=== PATIENT | female | born 1940 | race Caucasian/White ===

== ENCOUNTER 2016-12-28 05:43 | Inpatient (IN) ==
[2016-12-28] MEDS ORDERED: VANCOMYCIN INJ 1,000 MG in SODIUM CHLORIDE 0.9% 250 ML IV ONE (06:00)
[2016-12-28] MEDS ORDERED: SODIUM CHLORIDE 0.9% 100 ML IV ONE (06:11)
[2016-12-28] MEDS ORDERED: ceFAZolin 1,000 MG VIAL ONE (06:11)
[2016-12-28] MEDS ORDERED: VANCOMYCIN 1,000 MG VIAL ONE (06:11)
[2016-12-28] MEDS ORDERED: SCOPOLAMINE 1.5 MG PATCH TRANSDERM ONE (06:43)
[2016-12-28] MEDS ORDERED: TRANEXAMIC ACID 1,000 MG/10 ML VIAL IV ONE (06:46)
[2016-12-28] MEDS ORDERED: SCOPOLAMINE 1.5 MG PATCH TRANSDERM STA (06:51)
--- NOTE | 2016-12-28 07:06 | History and Physical Update ---
History and Physical Update - History and Physical H&P was reviewed, the patient examined and there: are no changes in the patients condition since last H&P was completed.
[2016-12-28] MEDS ORDERED: ONDANSETRON 4 MG/2 ML VIAL ONE ×2 (07:15→09:39)
[2016-12-28] MEDS ORDERED: PROPOFOL 200 MG/20 ML VIAL IV ONE (07:15)
[2016-12-28] MEDS ORDERED: KETOROLAC 30 MG/1 ML VIAL ONE (07:15)
[2016-12-28] MEDS ORDERED: LIDOCAINE 2% 5 ML VIAL ONE (07:15)
[2016-12-28] MEDS ORDERED: GLYCOPYRROLATE 0.4 MG/2 ML VIAL ONE (07:15)
[2016-12-28] MEDS ORDERED: DEXAMETHASONE 10 MG/1 ML VIAL ONE (07:15)
[2016-12-28] MEDS: LACTATED RINGERS 1,000 ML IV SCH ×3 (07:15→14:40)
[2016-12-28] MEDS ORDERED: HYDROmorphone 2 MG/1 ML VIAL ONE (09:28)
[2016-12-28] MEDS ORDERED: SEVOFLURANE 1 UNIT/15 MINUTE INH ONE (09:28)
[2016-12-28] MEDS ORDERED: MIDAZOLAM 2 MG/2 ML VIAL ONE (09:29)
[2016-12-28] MEDS ORDERED: fentaNYL 100 MCG/2 ML VIAL ONE (09:29)
[2016-12-28] MEDS ORDERED: ACETAMINOPHEN 1,000 MG/100 ML VIAL IV ONE (09:29)
[2016-12-28] MEDS ORDERED: LACTATED RINGERS 1,000 ML IV ONE (09:29)
[2016-12-28] MEDS ORDERED: HYDROmorphone 2 MG/1 ML VIAL IV PRN ×2 (09:37→09:42)
[2016-12-28] MEDS ORDERED: ONDANSETRON 4 MG/2 ML VIAL IV PRN ×2 (09:37→09:42)
[2016-12-28] MEDS ORDERED: NALOXONE 0.4 MG/ML VIAL IV PRN (09:42)
[2016-12-28] MEDS ORDERED: BISACODYL 10 MG SUPP RECTAL PRN (09:42)
[2016-12-28] MEDS ORDERED: MAGNESIUM HYDROXIDE SUSP 30 ML UDCUP PO PRN (09:42)
[2016-12-28] MEDS ORDERED: PROMETHAZINE 25 MG/1 ML VIAL IM PRN (09:42)
[2016-12-28] MEDS ORDERED: TEMAZEPAM 7.5 MG CAPSULE PO PRN (09:42)
[2016-12-28] MEDS ORDERED: diphenhydrAMINE CAP 25 MG CAPSULE PO PRN (09:42)
[2016-12-28] MEDS ORDERED: LACTULOSE 20 GM/30 ML UDCUP PO PRN (09:42)
[2016-12-28] MEDS ORDERED: NITROGLYCERIN SL 0.4 MG TABLET SL PRN (09:45)
[2016-12-28] MEDS ORDERED: diphenhydrAMINE 50 MG/1 ML VIAL ONE (10:03)
[2016-12-28] MEDS: HYDROmorphone PCA 30 MG/30 ML SYRINGE IV SCH (10:05)
[2016-12-28] MEDS ORDERED: diphenhydrAMINE 50 MG/1 ML VIAL IV ONE (10:06)
[2016-12-28] MEDS ORDERED: HYDROmorphone PCA 30 MG/30 ML SYRINGE IV ONE (10:10)
--- NOTE | 2016-12-28 12:03 | Anesthesia Post-Op ---
Anesthesia Post OP - Post Ansesthetic Evaluation Patient seen in post op: Yes Resp: within normal limits CV: within normal limits Mental: within normal limits Temp: within normal limits [id number]: within normal limits Nausea and Vomiting: within normal limits Pain: within normal limits
--- NOTE | 2016-12-28 13:01 | Orthopedic Progress Note ---
Orthopedics - Subjective Interval history: Comfortable no nausea good pulse discussed up in a.m. Exam - Constitutional Vitals: Period Temp Pulse Resp BP Sys/Herrera Pulse Ox Last 24 Hr 97.2 F-98.4 F 63-76 16-18 137-167/55-67 95-100
--- NOTE | 2016-12-28 13:30 | XRay Report ---
XR knee 2V RT Indication: Arthroplasty Comparison: None available Findings: Right knee arthroplasty has been performed. Component positioning appears within normal limits. No periprosthetic fracture seen. Expected postsurgical changes are present in the overlying soft tissues. Impression: Knee arthroplasty as described above. PROCEDURE INTERPRETED AT [facility] DEPARTMENT OF RADIOLOGY Final Report Signed by: Dr. Ld Ba
--- NOTE | 2016-12-28 19:09 | Operative Note ---
DATE OF SURGERY: 12/28/2016 PREOPERATIVE DIAGNOSIS: FAILED UNICOMPARTMENTAL ARTHROPLASTY, RIGHT KNEE. POSTOPERATIVE DIAGNOSIS: SAME. OPERATIVE PROCEDURE: Revision, right total knee. SURGEON: Luis Holloway Jr., MD ANESTHESIA: General. INDICATIONS: A 76-year-old white female, approximately 14 years from unicompartmental arthroplasty t o her right knee. She has had increasing amount of pain, swelling and instability with gait in the [facility] knee over the past several years. She ultimately had her left unicompartmental knee revised with a total and she has done very well. She is here today for revision of the right knee. OPERATIVE PROCEDURE: The patient was taken to the operating room and under general anesthetic, place d in a supine position, the right leg was positioned, prepped and draped in usual sterile manner. Juan garay received vancomycin and Ancef preoperatively. The limb was elevated, exsanguinated, and the tourni quet inflated to 300 mmHg. A midline incision was made over the anterior aspect of the right knee. Sharp dissection was carried down through skin and subcutaneous tissue. A medium parapatellar arthro keyla performed, minimal effusion. No clinical evidence of infection. The femoral component and tibi al component were both removed using flexible osteotomes. The poly tibial component was essentially loose. Intramedullary alignment guides were then used to make the appropriate cuts about the distal femur and proximal tibia. The femur was sized to a 2.5 and prepared for posterior stabilized compone nt, which was similar to what she has on the contralateral knee. The tibia was also exposed and cut for a 5 mm medial augment. Ultimately, a 10 mm rotating platform posterior stabilized component was selected with a size 2 tibial stem and a 5 mm augment. Removal of the trial components was then perf ormed. The patella was to be resurfaced with a 32-button. Again, removal of the trial components an d after irrigation all three components cemented into place. The knee was then further irrigated and closed over two 1/8-inch Hemovac drains in a standard fashion using #1 Vicryl for the arthrotomy, 2- 0 Vicryl for the subcutaneous layer, and francesco for skin. Tourniquet was deflated during wound clos ure at 65 minutes. Transported to recovery room in stable condition.
[2016-12-28] MEDS: FONDAPARINUX 2.5 MG/0.5 ML SYRINGE SUBCUT SCH (20:47)
[2016-12-28] MEDS: DILTIAZEM CD 240 MG CAPSULE PO SCH (20:47)
[2016-12-28] MEDS: CARVEDILOL 12.5 MG TABLET PO SCH (20:48)
[2016-12-28] MEDS: DOCUSATE SODIUM 100 MG CAPSULE PO SCH ×2 (20:48→20:54)
[2016-12-28] MEDS: CHOLECALCIFEROL 1,000 UNIT TABLET PO SCH (20:48)
[2016-12-28] MEDS: ASCORBIC ACID 500 MG TABLET PO SCH (20:48)
[2016-12-28] MEDS: diphenhydrAMINE CAP 25 MG CAPSULE PO SCH (20:48)
[2016-12-28] MEDS: ATORVASTATIN 40 MG TABLET PO SCH (20:48)
[2016-12-28] MEDS: cycloSPORINE OPH EMUL 1 VIAL BOTH EYES SCH (20:50)
[2016-12-28] MEDS ORDERED: SLOW MAG 71.5 MG PO SCH (21:00)
[2016-12-28] MEDS ORDERED: ARMOUR THYROID PO SCH (21:00)
[2016-12-28] MEDS ORDERED: VIMOVO PO SCH (21:00)
[2016-12-29 06:50] LABS: Basophils % 0.1 % (0.0-0.8); Hematocrit 31.5 VOL% (35.7-47.0); Immature Granulocytes % 0.3 %; Immature Granulocytes Absolute 0.04 #; Lymphocytes # 1.1 10*3/uL (1.4-4.0); Lymphocytes % 8.5 % (21.3-54.2); Mean Corpuscular HGB Conc 31.7 GM/DL (32-36); Mean Corpuscular Hemoglobin 29 PG (27-34); Mean Corpuscular Volume 91.3 FL (87-102); Mean Platelet Volume 10.7 FL (9.6-12.0); Monocytes # 1.1 10*3/uL (0.11-0.8); Monocytes % 8.4 % (1.7-12.7); Neutrophils # 10.4 10*3/uL (1.4-7.4); Neutrophils % 82.7 % (38.7-73.9); Platelet Count 301 T/CUMM (130-400); Red Blood Count 3.45 MC/CUMM (3.8-5.5); Red Cell Distribution Width 14.4 % (9.3-17.3); White Blood Count 12.5 T/CUMM (4-12)
[2016-12-29 07:17] LABS: Hypochromasia 1+; Lymphocytes 6 % (20-55); Ovalocytes Slight; Platelet Estimate Adequate; Segmented Neutrophils 91 % (50-85); Total Cells Counted 100
[2016-12-29 07:19] LABS: Calcium 8.9 MG/DL (8.5-10.1); Osmolality,Calculated 279.4 MOS/KG (273-304)
[2016-12-29] MEDS: LACTATED RINGERS 1,000 ML IV SCH ×2 (07:25→23:58)
--- NOTE | 2016-12-29 07:51 | Orthopedic Progress Note ---
Orthopedics - Subjective Interval history: Hemoglobin 10 comfortable neurovascular intact drain removed ready for start PT planning home with home health Exam - Constitutional Vitals: Period Temp Pulse Resp BP Sys/Herrera Pulse Ox Last 24 Hr 97.2 F-98.5 F 59-86 16-18 121-162/53-97 90-100 Results - Labs CBC & BMP: 12/29/16 06:36 12/29/16 06:36
[2016-12-29] MEDS: CHOLECALCIFEROL 1,000 UNIT TABLET PO SCH ×2 (08:42→21:31)
[2016-12-29] MEDS: OLMESARTAN 20 MG TABLET PO SCH (08:42)
[2016-12-29] MEDS: MULTIVITAMIN (CENTRUM) TABLET PO SCH (08:42)
[2016-12-29] MEDS: CALCIUM (CARBONATE) 600 MG TABLET PO SCH (08:42)
[2016-12-29] MEDS: ASCORBIC ACID 500 MG TABLET PO SCH ×2 (08:42→21:30)
[2016-12-29] MEDS: CLOPIDOGREL 75 MG TABLET PO SCH (08:42)
[2016-12-29] MEDS: DOCUSATE SODIUM 100 MG CAPSULE PO SCH ×2 (08:42→21:31)
[2016-12-29] MEDS: COENZYME Q10 100 MG CAPSULE PO SCH (08:43)
[2016-12-29] MEDS: CARVEDILOL 25 MG TABLET PO SCH (08:45)
[2016-12-29] MEDS: cycloSPORINE OPH EMUL 1 VIAL BOTH EYES SCH ×2 (08:47→21:37)
[2016-12-29] MEDS: POLYETHYLENE GLYCOL POWDER 17 GM PACK PO SCH (08:47)
[2016-12-29] MEDS: HYDROmorphone PCA 30 MG/30 ML SYRINGE IV SCH (10:19)
--- NOTE | 2016-12-29 10:28 | Pulmonology Progress Note ---
Pulmonary - PN: Subj Interval history: This is a 76-year-old white female who is the of Dr. Joseph Collins. She is postop total knee replacement is doing very well. There are no new problems and there are no new requests. Past history includes high blood pressure, hyperlipidemia stent in the proximal LAD and a second stent distally placed 11/18/2011. Scoliosis. Spinal stenosis. Previous total left knee replacement 2000. Hysterectomy. Ankle repair in 1976 and in 2003. Past history of paroxysmal supraventricular tachycardia. Lab. H&H 10.0/31.5. Platelets are 301,000. White count is 12,500. Electrolytes are normal. Creatinine 0.60 with a BUN of 9. Physical exam. Vital signs. See below Psychiatric oriented 3 Neurologic. Cranial nerves are intact. Long track motor functions intact. Face. Symmetrical. No edema of the lips or tongue. Neck. Symmetrical. No mass. No meningismus. Chest. Clear Heart. No gallop Abdomen nondistended. Positive bowel sounds Extremities. Nothing to suggest deep venous thrombophlebitis. The remainder the exam is noncontributory Plan. 1. Continue present regimen. 2. Home medicines have been continued Exam (Progress Note) - Constitutional Vitals: Period Temp Pulse Resp BP Sys/Herrera Pulse Ox Last 24 Hr 97.3 F-98.5 F 59-86 16-18 121-153/53-97 90-98 Results - Labs CBC & BMP: 12/29/16 06:36 12/29/16 06:36
--- NOTE | 2016-12-29 11:21 | Pathology Report from [facility] ---
[facility] [place] ACCESSION # : [id number] PATIENT NAME : Fartun Collins ORDERING DR : DARREN LANDRY JR, MD CLINICAL HX: Unicompartment arthoplasties POST-OP DX: Same SPECIMEN INFO: Bone tissue RT knee & old implant GROSS DESCRIPTION: Received in formalin labeled FARTUN COLLINS are multiple fragments of bone, soft tissue and cartilage measuring 13.5 x 6.5 cm in aggregate. The articular surfaces are predominately smooth lowe with no subchondral eburnation seen. Also received in the specimen container is knee replacement hardware. General Teller tissue is submitted in one cassette. 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 COLLECTED DATE: 12/28/2016 [facility] [place] REPORT DATE: 12/29/2016 ELECTRONICALLY SIGNED BY: Erickson Prieto M.D. 12/29/2016 - 10:16:15 MTDCandice
[2016-12-29] MEDS: DILTIAZEM CD 240 MG CAPSULE PO SCH (21:30)
[2016-12-29] MEDS: ATORVASTATIN 40 MG TABLET PO SCH (21:30)
[2016-12-29] MEDS: CARVEDILOL 12.5 MG TABLET PO SCH (21:30)
[2016-12-29] MEDS: diphenhydrAMINE CAP 25 MG CAPSULE PO SCH (21:31)
[2016-12-29] MEDS: FONDAPARINUX 2.5 MG/0.5 ML SYRINGE SUBCUT SCH (21:31)
[2016-12-30 05:44] LABS: Basophils % 0.1 % (0.0-0.8); Eosinophils % 0.1 % (0.00-10.9); Hematocrit 27.1 VOL% (35.7-47.0); Hemoglobin 8.9 GM/DL (12.0-16.0); Immature Granulocytes % 0.3 %; Immature Granulocytes Absolute 0.04 #; Lymphocytes % 16.9 % (21.3-54.2); Mean Corpuscular HGB Conc 32.8 GM/DL (32-36); Mean Corpuscular Hemoglobin 30 PG (27-34); Mean Corpuscular Volume 91.6 FL (87-102); Mean Platelet Volume 11.3 FL (9.6-12.0); Monocytes # 1.4 10*3/uL (0.11-0.8); Neutrophils # 8.4 10*3/uL (1.4-7.4); Neutrophils % 70.6 % (38.7-73.9); Platelet Count 247 T/CUMM (130-400); Red Blood Count 2.96 MC/CUMM (3.8-5.5); Red Cell Distribution Width 14.6 % (9.3-17.3); White Blood Count 11.9 T/CUMM (4-12)
[2016-12-30] MEDS: ASCORBIC ACID 500 MG TABLET PO SCH (08:52)
[2016-12-30] MEDS: CALCIUM (CARBONATE) 600 MG TABLET PO SCH (08:52)
[2016-12-30] MEDS: COENZYME Q10 100 MG CAPSULE PO SCH (08:52)
[2016-12-30] MEDS: CLOPIDOGREL 75 MG TABLET PO SCH (08:52)
[2016-12-30] MEDS: cycloSPORINE OPH EMUL 1 VIAL BOTH EYES SCH (08:53)
[2016-12-30] MEDS: DOCUSATE SODIUM 100 MG CAPSULE PO SCH (08:53)
[2016-12-30] MEDS: MULTIVITAMIN (CENTRUM) TABLET PO SCH (08:53)
[2016-12-30] MEDS: CHOLECALCIFEROL 1,000 UNIT TABLET PO SCH (08:53)
[2016-12-30] MEDS: OLMESARTAN 20 MG TABLET PO SCH (08:53)
[2016-12-30] MEDS: CARVEDILOL 25 MG TABLET PO SCH (08:58)
[2016-12-30] MEDS: POLYETHYLENE GLYCOL POWDER 17 GM PACK PO SCH (08:58)
--- NOTE | 2016-12-30 09:35 | Pulmonology Progress Note ---
Pulmonary - PN: Subj Interval history: This is a 76-year-old white female who is the of Dr. Joseph Clolins. She is postop total knee replacement is doing very well. There are no new problems and there are no new requests. Past history includes high blood pressure, hyperlipidemia stent in the proximal LAD and a second stent distally placed 11/18/2011. Scoliosis. Spinal stenosis. Previous total left knee replacement 2000. Hysterectomy. Ankle repair in 1976 and in 2003. Past history of paroxysmal supraventricular tachycardia. Lab. H&H 10.0/31.5. Platelets are 301,000. White count is 12,500. Electrolytes are normal. Creatinine 0.60 with a BUN of 9. 12/30/2016. Patient is doing well today her daughter Ms. ramirez was present. Patient's had a recent GI infection which was treated with Cipro she now has excessive gas. I suggested she try Phazyme if her symptoms do not clear up in 2 -3 weeks we should investigate it. Physical exam. Vital signs. See below Psychiatric oriented 3 Neurologic. Cranial nerves are intact. Long track motor functions intact. Face. Symmetrical. No edema of the lips or tongue. Neck. Symmetrical. No mass. No meningismus. Chest. Clear Heart. No gallop Abdomen nondistended. Positive bowel sounds Extremities. Nothing to suggest deep venous thrombophlebitis. The remainder the exam is noncontributory Plan. 12/29/2016 1. Continue present regimen. 2. Home medicines have been continued 12/30/2016. 1. See today's note above. 2. Gaseous Exam (Progress Note) - Constitutional Vitals: Period Temp Pulse Resp BP Sys/Herrera Pulse Ox Last 24 Hr 97.2 F-98.7 F 63-113 16-18 124-174/54-64 93-96 Results - Labs CBC & BMP: 12/30/16 04:38 12/29/16 06:36
--- NOTE | 2016-12-30 10:19 | Orthopedic Progress Note ---
Orthopedics - Subjective Interval history: Comfortable H&H okay minimal drainage instructed will likely go home after PT today if continues to do well Exam - Constitutional Vitals: Period Temp Pulse Resp BP Sys/Herrera Pulse Ox Last 24 Hr 97.2 F-98.7 F 63-113 16-18 124-174/54-64 93-96 Results - Labs CBC & BMP: 12/30/16 04:38 12/29/16 06:36 Specialty Discharge - Follow Up or Referrals Follow up with: Luis Holloway Jr., MD [Physician] -
--- NOTE | 2016-12-30 10:22 | Discharge Summary ---
Hospital Course - Hospital Course Hospital Course: Admitted for revision right total knee progressing well home with home health and home PT Diagnosis - Discharge Diagnosis (1) Failed total knee, right Status: Acute (2) Failed total knee arthroplasty Status: Acute Specialty Discharge - Follow Up or Referrals Follow up with: Luis Holloway Jr., MD [Physician] - Discharge Plan - Discharge Data Disposition: Home Health Service Condition at Discharge: Stable Discharge Diet: advance to your usual diet Activity: ambulate only with your walker, as per physical therapy, increase activity as tolerated Hygiene: may shower, keep area(s) dry Weight Bearing at Discharge: weight bear as tolerated Driving: not until seen by doctor - Discharge Medications New HYDROcodone/ACETAMIN 7.5-325 [[place] 7.5-325] 1 tablet PO Q4H PRN #30 tablet PRN Reason: Pain Moderate (4-7) Continue Thyroid,Pork [[place] Thyroid] 45 mg PO BID Olmesartan Medoxomil [Benicar] 40 mg PO DAILY Diltiazem Cd Cap [Cardizem CD] 240 mg PO BEDTIME Carvedilol [Coreg] 25 mg PO QAM Atorvastatin [Lipitor] 40 mg PO BEDTIME Nitroglycerin Sl Tab [Nitrostat] 1 tablet SL Q5M PRN PRN Reason: CHEST PAIN cycloSPORINE OPH EMUL [Restasis] 1 drop BOTH EYES BID Naproxen/Esomeprazole Mag [Vimovo 500-20 mg] 1 tablet PO BID Ascorbic Acid [Vitamin C] 1,000 mg PO BID Magnesium Chloride [Slow-Mag] 71.5 mg PO BID Cholecalciferol [Vitamin D3] 1,000 unit PO BID Esomeprazole Magnesium [Nexium] 20 mg PO DAILY diphenhydrAMINE CAP [Benadryl Cap] 25 mg PO BEDTIME Calcium (Carbonate) [Caltrate 600] 600 mg PO DAILY Multivitamin [One Daily] 1 tablet PO DAILY Carvedilol [Coreg] 12.5 tablet PO BEDTIME Polyethylene Glycol Powder [Miralax] 17 gm PO DAILY Clopidogrel [Plavix] 75 mg PO DAILY Coenzyme Q10 100 mg PO DAILY - Follow Up or Referral Follow Up: Luis Holloway Jr., MD [Physician] - - Forms/Instructions Additional Discharge Instructions: Discharge home with home health home PT advancing towards full weightbearing. Home CPM and walker. [place] for pain continue Plavix francesco removed and wound Steri-Stripped January 11. Follow-up 4 weeks Exam - Constitutional Vitals: Period Temp Pulse Resp BP Sys/Herrera Pulse Ox Last 24 Hr 97.2 F-98.7 F 63-113 16-18 124-174/54-64 93-96 Discharge Results Labs on day of discharge: Labs from last 24 hours 12/30/16 04:38 WBC 11.9 RBC 2.96 L Hgb 8.9 L Hct 27.1 L MCV 91.6 MCH 30 MCHC 32.8 RDW 14.6 Plt Count 247 MPV 11.3 Neut % (Auto) 70.6 Lymph % (Auto) 16.9 L Yell % (Auto) 12.0 Eos % (Auto) 0.1 Baso % (Auto) 0.1 Neut # (Auto) 8.4 H Lymph # (Auto) 2.0 Yell # (Auto) 1.4 H Eos # (Auto) 0.0 Baso # (Auto) 0.0 Immature Gran % 0.3 Nucleated RBC % 0.0 Immature Gran # 0.04 Nucleated RBCs # 0.00 DS: Provider Date of admission: 12/28/16 09:42 Primary care physician: Broderick Bocanegra MD Attending physician on admission: Luis Holloway Jr., MD Consults: 12/28/16 09:42 Consult to Case Mgmt/Social Srvs [CONS] Routine Reason for Case Mgmt/Social Srvs: Rehab Home Health Equipment Consult Comment: Deliver CPM Machine today, Patient is discharging home. Room 318 Consult to Occupational Therapy [CONS] Routine Reason for Occupational Therapy: Evaluate and Treat Consult Comment: ADL's Consult to Physical Therapy [CONS] Routine Reason for Physical Therapy: Evaluate and Treat Gait Training Consult Comment: WBAT on right 12/28/16 09:45 Consult to Physician [CONS] Routine Comment: Consulting Provider: Broderick Bocanegra Consulting Provider Notified: Yes When should Consulting Provider be notified: Now Person Notified: liz called Date Notified: 12/28/16 Time Notified: 10:38 Discharging clinician: Luis Holloway Jr., MD
[2016-12-30 11:23] VITALS: BP 119/51
== END 2016-12-30 14:56 | disposition home health service (06) | DRG 468 ==
LOC: N.OR 05:43 → N.SDSINP 05:49 → N.3E 08:22
PROVIDERS: ADMIT Orthopaedic Surgery; ATTEND Orthopaedic Surgery

== ENCOUNTER 2017-10-24 06:00 | Inpatient (IN) ==
[2017-10-24] MEDS ORDERED: diphenhydrAMINE CAP 25 MG CAPSULE ONE (07:17)
[2017-10-24] MEDS ORDERED: ASPIRIN 325 MG TABLET ONE (07:17)
[2017-10-24] MEDS ORDERED: DIAZEPAM 5 MG TABLET ONE (07:17)
[2017-10-24] MEDS ORDERED: HEPARIN/NACL 0.9% 2 UNITS/ML 1,000 ML IV ONE (07:36)
[2017-10-24] MEDS ORDERED: POTASSIUM CHLORIDE RIDER 10 MEQ in PREMIX 1 EACH IV PRN (07:43)
[2017-10-24] MEDS ORDERED: diphenhydrAMINE CAP 25 MG CAPSULE PO ONE (07:43)
[2017-10-24] MEDS ORDERED: ASPIRIN 325 MG TABLET PO ONE (07:43)
[2017-10-24] MEDS ORDERED: MAGNESIUM SULF RIDER 2 GM in PREMIX 1 EACH IV PRN (07:43)
[2017-10-24] MEDS ORDERED: DIAZEPAM 5 MG TABLET PO ONE (07:43)
[2017-10-24] MEDS: SODIUM CHLORIDE 0.9% 1,000 ML IV SCH ×3 (07:49→18:51)
[2017-10-24] MEDS ORDERED: fentaNYL 100 MCG/2 ML VIAL ONE (08:39)
[2017-10-24] MEDS ORDERED: MIDAZOLAM 2 MG/2 ML VIAL ONE (08:39)
[2017-10-24] MEDS ORDERED: NITROGLYCERIN DRIP 50 MG/250 ML BOTTLE IV ONE (08:45)
[2017-10-24] MEDS ORDERED: VERAPAMIL 5 MG/2 ML VIAL ONE (08:45)
[2017-10-24] MEDS ORDERED: ENOXAPARIN 30 MG/0.3 ML SYRINGE ONE (08:48)
[2017-10-24] MEDS ORDERED: LABETALOL 20 MG/4 ML SYRINGE IV ONE (09:03)
[2017-10-24] MEDS ORDERED: LIDOCAINE 5% PATCH TRANSDERM PRN (09:20)
[2017-10-24] MEDS ORDERED: NITROGLYCERIN SL 0.4 MG TABLET SL PRN (09:20)
[2017-10-24] MEDS ORDERED: SODIUM CHLORIDE 0.9% 1,000 ML IV SCH (09:30)
[2017-10-24] MEDS: ASCORBIC ACID 500 MG TABLET PO SCH ×2 (11:00→21:51)
[2017-10-24] MEDS ORDERED: DILTIAZEM CD 240 MG CAPSULE PO SCH (18:30)
[2017-10-24] MEDS: DILTIAZEM CD 120 MG CAPSULE PO SCH (18:46)
[2017-10-24] MEDS: CARVEDILOL 12.5 MG TABLET PO SCH (18:46)
[2017-10-24] MEDS ORDERED: THYROID PORK 45 MG PO SCH (21:00)
[2017-10-24] MEDS: hydrALAZINE 20 MG/1 ML VIAL IV PRN (21:49)
[2017-10-24] MEDS: ASPIRIN EC 81 MG TABLET PO SCH (21:51)
[2017-10-24] MEDS: MAGNESIUM CHLORIDE 64 MG TABLET PO SCH (21:51)
[2017-10-24] MEDS: CHOLECALCIFEROL 1,000 UNIT TABLET PO SCH (21:52)
[2017-10-24] MEDS: NAPROXEN 250 MG TABLET PO PRN (21:52)
[2017-10-24] MEDS: cycloSPORINE OPH EMUL 1 VIAL BOTH EYES SCH (21:52)
[2017-10-24] MEDS: THYROID 60 MG TABLET PO SCH (21:52)
[2017-10-24] MEDS: diphenhydrAMINE CAP 25 MG CAPSULE PO SCH (21:52)
[2017-10-24] MEDS: ATORVASTATIN 40 MG TABLET PO SCH (21:52)
[2017-10-25 04:58] LABS: Basophils % 0.5 % (0.0-0.8); Eosinophils # 0.4 10*3/uL (0.0-0.87); Eosinophils % 4.3 % (0.00-10.9); Hematocrit 37.9 VOL% (35.7-47.0); Hemoglobin 12.3 GM/DL (12.0-16.0); Immature Granulocytes % 0.2 %; Immature Granulocytes Absolute 0.02 #; Lymphocytes # 2.9 10*3/uL (1.4-4.0); Lymphocytes % 35.8 % (21.3-54.2); Mean Corpuscular HGB Conc 32.5 GM/DL (32-36); Mean Corpuscular Hemoglobin 30 PG (27-34); Mean Corpuscular Volume 92.2 FL (87-102); Mean Platelet Volume 10.9 FL (9.6-12.0); Monocytes # 0.9 10*3/uL (0.11-0.8); Neutrophils # 3.9 10*3/uL (1.4-7.4); Neutrophils % 48.2 % (38.7-73.9); Platelet Count 259 T/CUMM (130-400); Red Blood Count 4.11 MC/CUMM (3.8-5.5); Red Cell Distribution Width 14.3 % (9.3-17.3); White Blood Count 8.1 T/CUMM (4-12)
[2017-10-25 05:28] LABS: Potassium 3.7 MMOL/L (3.5-5.1)
[2017-10-25] MEDS: hydrALAZINE 20 MG/1 ML VIAL IV PRN ×2 (05:35→18:29)
[2017-10-25] MEDS: POLYETHYLENE GLYCOL POWDER 17 GM PACK PO SCH (08:39)
[2017-10-25] MEDS: MAGNESIUM CHLORIDE 64 MG TABLET PO SCH ×2 (08:40→20:30)
[2017-10-25] MEDS: CALCIUM (CARBONATE) 600 MG TABLET PO SCH (08:40)
[2017-10-25] MEDS: MULTIVITAMIN (CENTRUM) TABLET PO SCH (08:40)
[2017-10-25] MEDS: cycloSPORINE OPH EMUL 1 VIAL BOTH EYES SCH ×2 (08:41→20:30)
[2017-10-25] MEDS: DILTIAZEM CD 120 MG CAPSULE PO SCH ×2 (08:41→20:29)
[2017-10-25] MEDS: ASCORBIC ACID 500 MG TABLET PO SCH ×2 (08:41→20:29)
[2017-10-25] MEDS: COENZYME Q10 100 MG CAPSULE PO SCH (08:41)
[2017-10-25] MEDS: OLMESARTAN 20 MG TABLET PO SCH (08:42)
[2017-10-25] MEDS: PANTOPRAZOLE 40 MG TABLET PO SCH (08:42)
[2017-10-25] MEDS: CARVEDILOL 25 MG TABLET PO SCH (08:42)
[2017-10-25] MEDS: CHOLECALCIFEROL 1,000 UNIT TABLET PO SCH ×2 (08:42→20:30)
[2017-10-25] MEDS ORDERED: [UNRECOGNIZED DRUG - OTHER] PO SCH (09:00)
[2017-10-25] MEDS ORDERED: MULTIVITAMIN (CENTRUM) TABLET PO SCH (09:00)
[2017-10-25] MEDS ORDERED: DHEA PO SCH (09:00)
[2017-10-25] MEDS: THYROID 60 MG TABLET PO SCH ×2 (09:02→20:30)
[2017-10-25] MEDS: CLORAZEPATE 3.75 MG TABLET PO PRN ×2 (09:40→20:36)
[2017-10-25] MEDS ORDERED: DEXTROSE 50% 25 GM/50 ML VIAL IV PRN (09:49)
[2017-10-25] MEDS ORDERED: GLUCAGON 1 MG VIAL IM PRN (09:49)
[2017-10-25] MEDS: NAPROXEN 250 MG TABLET PO PRN (18:28)
[2017-10-25] MEDS: ATORVASTATIN 40 MG TABLET PO SCH (20:30)
[2017-10-25] MEDS: ASPIRIN EC 81 MG TABLET PO SCH (20:30)
[2017-10-25] MEDS: CARVEDILOL 12.5 MG TABLET PO SCH (20:30)
[2017-10-25] MEDS: diphenhydrAMINE CAP 25 MG CAPSULE PO SCH (20:32)
[2017-10-25] MEDS: CHLORHEXIDINE 0.12% ORAL RINSE 60 ML BOTTLE SWISH/SPIT SCH (20:37)
[2017-10-26] MEDS: CLORAZEPATE 3.75 MG TABLET PO PRN ×3 (04:03→22:00)
[2017-10-26] MEDS: NAPROXEN 250 MG TABLET PO PRN ×3 (04:03→22:01)
[2017-10-26 04:59] LABS: PT Patient Result 10.2 SECS
[2017-10-26 05:26] LABS: Calcium 9.5 MG/DL (8.5-10.1); Osmolality,Calculated 284.1 MOS/KG (273-304); Potassium 3.7 MMOL/L (3.5-5.1)
[2017-10-26] MEDS: SODIUM CHLORIDE 0.9% 1,000 ML IV SCH ×2 (07:59→11:30)
[2017-10-26] MEDS: COENZYME Q10 100 MG CAPSULE PO SCH (09:05)
[2017-10-26] MEDS: cycloSPORINE OPH EMUL 1 VIAL BOTH EYES SCH ×2 (09:06→22:03)
[2017-10-26] MEDS: ASCORBIC ACID 500 MG TABLET PO SCH ×2 (09:06→22:02)
[2017-10-26] MEDS: POLYETHYLENE GLYCOL POWDER 17 GM PACK PO SCH (09:06)
[2017-10-26] MEDS: THYROID 60 MG TABLET PO SCH ×2 (09:06→22:01)
[2017-10-26] MEDS: OLMESARTAN 20 MG TABLET PO SCH (09:06)
[2017-10-26] MEDS: CHLORHEXIDINE 0.12% ORAL RINSE 60 ML BOTTLE SWISH/SPIT SCH ×2 (09:06→22:02)
[2017-10-26] MEDS: CALCIUM (CARBONATE) 600 MG TABLET PO SCH (09:06)
[2017-10-26] MEDS: DILTIAZEM CD 120 MG CAPSULE PO SCH ×2 (09:07→22:01)
[2017-10-26] MEDS: MAGNESIUM CHLORIDE 64 MG TABLET PO SCH ×2 (09:07→22:00)
[2017-10-26] MEDS: MULTIVITAMIN (CENTRUM) TABLET PO SCH (09:07)
[2017-10-26] MEDS: PANTOPRAZOLE 40 MG TABLET PO SCH (09:07)
[2017-10-26] MEDS: CARVEDILOL 25 MG TABLET PO SCH (09:07)
[2017-10-26] MEDS: CHOLECALCIFEROL 1,000 UNIT TABLET PO SCH ×2 (09:07→22:00)
[2017-10-26] MEDS: ATORVASTATIN 40 MG TABLET PO SCH (22:01)
[2017-10-26] MEDS: ASPIRIN EC 81 MG TABLET PO SCH (22:01)
[2017-10-26] MEDS: diphenhydrAMINE CAP 25 MG CAPSULE PO SCH (22:02)
[2017-10-26] MEDS: CARVEDILOL 12.5 MG TABLET PO SCH (22:02)
[2017-10-27 05:38] LABS: Basophils # 0.1 10*3/uL (0.0-0.2); Basophils % 0.7 % (0.0-0.8); Eosinophils # 0.4 10*3/uL (0.0-0.87); Eosinophils % 4.7 % (0.00-10.9); Hematocrit 33.7 VOL% (35.7-47.0); Hemoglobin 11.1 GM/DL (12.0-16.0); Immature Granulocytes % 0.3 %; Immature Granulocytes Absolute 0.02 #; Lymphocytes # 2.8 10*3/uL (1.4-4.0); Lymphocytes % 36.3 % (21.3-54.2); Mean Corpuscular HGB Conc 32.9 GM/DL (32-36); Mean Corpuscular Hemoglobin 30 PG (27-34); Mean Corpuscular Volume 92.3 FL (87-102); Mean Platelet Volume 11.5 FL (9.6-12.0); Monocytes # 0.9 10*3/uL (0.11-0.8); Monocytes % 11.7 % (1.7-12.7); Neutrophils # 3.5 10*3/uL (1.4-7.4); Neutrophils % 46.3 % (38.7-73.9); Platelet Count 247 T/CUMM (130-400); Red Blood Count 3.65 MC/CUMM (3.8-5.5); Red Cell Distribution Width 14.4 % (9.3-17.3); White Blood Count 7.6 T/CUMM (4-12)
[2017-10-27 06:15] LABS: Potassium 3.8 MMOL/L (3.5-5.1)
[2017-10-27] MEDS: DILTIAZEM CD 120 MG CAPSULE PO SCH ×2 (09:06→21:01)
[2017-10-27] MEDS: ASCORBIC ACID 500 MG TABLET PO SCH ×2 (09:06→21:00)
[2017-10-27] MEDS: PANTOPRAZOLE 40 MG TABLET PO SCH (09:06)
[2017-10-27] MEDS: POLYETHYLENE GLYCOL POWDER 17 GM PACK PO SCH (09:06)
[2017-10-27] MEDS: THYROID 60 MG TABLET PO SCH ×2 (09:06→21:02)
[2017-10-27] MEDS: COENZYME Q10 100 MG CAPSULE PO SCH (09:07)
[2017-10-27] MEDS: CALCIUM (CARBONATE) 600 MG TABLET PO SCH (09:07)
[2017-10-27] MEDS: MULTIVITAMIN (CENTRUM) TABLET PO SCH (09:07)
[2017-10-27] MEDS: cycloSPORINE OPH EMUL 1 VIAL BOTH EYES SCH ×2 (09:07→21:02)
[2017-10-27] MEDS: MAGNESIUM CHLORIDE 64 MG TABLET PO SCH ×2 (09:07→21:01)
[2017-10-27] MEDS: CARVEDILOL 25 MG TABLET PO SCH (09:07)
[2017-10-27] MEDS: OLMESARTAN 20 MG TABLET PO SCH (09:07)
[2017-10-27] MEDS: CHOLECALCIFEROL 1,000 UNIT TABLET PO SCH ×2 (09:07→21:02)
[2017-10-27] MEDS: CHLORHEXIDINE 0.12% ORAL RINSE 60 ML BOTTLE SWISH/SPIT SCH ×2 (09:08→21:11)
[2017-10-27] MEDS ORDERED: CEFUROXIME INJ 1,500 MG in SYRINGE 1 EACH IV ONE (09:49)
[2017-10-27] MEDS: CLORAZEPATE 3.75 MG TABLET PO PRN ×2 (11:43→21:00)
[2017-10-27] MEDS: CHLORHEXIDINE 4% SOLN 118 ML BOTTLE TOP SCH ×2 (14:24→21:00)
[2017-10-27] MEDS: diphenhydrAMINE CAP 25 MG CAPSULE PO SCH (21:01)
[2017-10-27] MEDS: CARVEDILOL 12.5 MG TABLET PO SCH (21:01)
[2017-10-27] MEDS: ASPIRIN EC 81 MG TABLET PO SCH (21:01)
[2017-10-27] MEDS: NAPROXEN 250 MG TABLET PO PRN (21:02)
[2017-10-27] MEDS: ATORVASTATIN 40 MG TABLET PO SCH (21:02)
[2017-10-27] MEDS: SODIUM CHLORIDE 0.9% 1,000 ML IV SCH (21:12)
[2017-10-28 03:39] LABS: ABG Base Excess 1.4 MMOL/L (-2.5-2.5); ABG HCO3 25.7 MMOL/L (20-26); ABG Oxygen Saturation 96.4 % (95-100); ABG PH 7.412 (7.35-7.45); ABG PO2 83.3 MM HG (80-95); ABG TCO2 23.3 MMOL/L (23-27); Allen Test Positive; Pt O2 Delivery Device Room Air
[2017-10-28] MEDS ORDERED: PAPAVERINE 60 MG/2 ML VIAL ONE (05:18)
[2017-10-28] MEDS ORDERED: VANCOMYCIN 1,000 MG VIAL ONE (05:18)
[2017-10-28 05:52] LABS: Basophils % 0.3 % (0.0-0.8); Eosinophils # 0.4 10*3/uL (0.0-0.87); Eosinophils % 3.6 % (0.00-10.9); Hematocrit 39.4 VOL% (35.7-47.0); Immature Granulocytes % 0.4 %; Immature Granulocytes Absolute 0.04 #; Lymphocytes # 2.9 10*3/uL (1.4-4.0); Lymphocytes % 30.1 % (21.3-54.2); Mean Corpuscular Hemoglobin 30 PG (27-34); Mean Corpuscular Volume 91.6 FL (87-102); Mean Platelet Volume 11.1 FL (9.6-12.0); Monocytes % 10.4 % (1.7-12.7); Neutrophils # 5.3 10*3/uL (1.4-7.4); Neutrophils % 55.2 % (38.7-73.9); Platelet Count 289 T/CUMM (130-400); Red Cell Distribution Width 14.4 % (9.3-17.3); White Blood Count 9.6 T/CUMM (4-12)
[2017-10-28] MEDS: CARVEDILOL 25 MG TABLET PO SCH ×2 (05:54→08:44)
[2017-10-28] MEDS ORDERED: FAMOTIDINE 20 MG TABLET PO ONE (06:00)
[2017-10-28] MEDS ORDERED: CEFUROXIME INJ 1,500 MG in SYRINGE 1 EACH IV ONE (06:00)
[2017-10-28] MEDS ORDERED: DIAZEPAM 5 MG TABLET PO ONE (06:00)
[2017-10-28] MEDS ORDERED: SCOPOLAMINE 1.5 MG PATCH TRANSDERM ONE (06:30)
[2017-10-28 06:32] LABS: Calcium 9.3 MG/DL (8.5-10.1)
[2017-10-28] MEDS ORDERED: CALCIUM CHLORIDE 1,000 MG/10 ML SYRINGE IV ONE (07:13)
[2017-10-28] MEDS ORDERED: PHENYLEPHRINE DRIP 40 MG/250 ML PREMIX IV ONE (07:13)
[2017-10-28] MEDS ORDERED: NITROPRUSSIDE 50 MG/2 ML VIAL ONE (07:13)
[2017-10-28] MEDS ORDERED: POTASSIUM CHLORIDE RIDER 100 ML IV ONE (07:13)
[2017-10-28 07:51] LABS: ABG Base Excess 0.4 MMOL/L (-2.5-2.5); ABG HCO3 24.8 MMOL/L (20-26); ABG PCO2 37.6 MM HG (35-48); ABG PH 7.424 (7.35-7.45); ABG TCO2 22.2 MMOL/L (23-27); Glucose Heart Surgery 98 MG/DL (74-106); Hemoglobin Heart Surgery 10.3 G/DL (12.0-16.0); Ionized Calcium Arterial 1.18 MMOL/L (1.21-1.46); PCO2 Patient Temp Arterial 37.6 MMHG; PH Patient Temp Arterial 7.424; Patient Temperature 37 CELCIUS; Potassium Heart/CVR 3.4 MMOL/L (3.5-5.1); Sodium Heart/CVR 139 MMOL/L (135-145)
[2017-10-28] MEDS: MULTIVITAMIN (CENTRUM) TABLET PO SCH (08:43)
[2017-10-28] MEDS: THYROID 60 MG TABLET PO SCH (08:43)
[2017-10-28] MEDS: OLMESARTAN 20 MG TABLET PO SCH (08:43)
[2017-10-28] MEDS: CALCIUM (CARBONATE) 600 MG TABLET PO SCH (08:43)
[2017-10-28] MEDS: DILTIAZEM CD 120 MG CAPSULE PO SCH (08:43)
[2017-10-28] MEDS: CHLORHEXIDINE 4% SOLN 118 ML BOTTLE TOP SCH (08:44)
[2017-10-28] MEDS: POLYETHYLENE GLYCOL POWDER 17 GM PACK PO SCH (08:44)
[2017-10-28] MEDS: CHLORHEXIDINE 0.12% ORAL RINSE 60 ML BOTTLE SWISH/SPIT SCH ×2 (08:44→21:34)
[2017-10-28] MEDS: PANTOPRAZOLE 40 MG TABLET PO SCH (08:44)
[2017-10-28] MEDS: COENZYME Q10 100 MG CAPSULE PO SCH (08:44)
[2017-10-28] MEDS: CHOLECALCIFEROL 1,000 UNIT TABLET PO SCH (08:45)
[2017-10-28] MEDS: cycloSPORINE OPH EMUL 1 VIAL BOTH EYES SCH (08:45)
[2017-10-28] MEDS: ASCORBIC ACID 500 MG TABLET PO SCH (08:45)
[2017-10-28] MEDS: MAGNESIUM CHLORIDE 64 MG TABLET PO SCH (08:45)
[2017-10-28 09:00] LABS: Hematocrit Heart Surgery 19.6 PERCENT (37-47); PCO2 Patient Temp Venous 29.2 MM HG; PH Patient Temp Venous 7.498; PO2 Patient Temp Venous 38.9 MM HG; Potassium Heart/CVR 4.3 MMOL/L (3.5-5.1); VBG Base Excess -0.1 MEQ/L (0-4); VBG HCO3 24.3 MEQ/L (24-28); VBG Oxygen Saturation 85.8 %; VBG PCO2 33.8 MMHG (41-51); VBG PH 7.453; VBG PO2 47.7 MMHG (17-40)
[2017-10-28 09:08] LABS: Hemoglobin Heart Surgery 6.2 G/DL (12.0-16.0)
[2017-10-28 09:48] LABS: ABG HCO3 23.6 MMOL/L (20-26); ABG PCO2 32.5 MM HG (35-48); ABG PH 7.449 (7.35-7.45); ABG TCO2 20.7 MMOL/L (23-27); Glucose Heart Surgery 259 MG/DL (74-106); Hematocrit Heart Surgery 27.6 PERCENT (37-47); Hemoglobin Heart Surgery 8.9 G/DL (12.0-16.0); Ionized Calcium Arterial 1.14 MMOL/L (1.21-1.46); PCO2 Patient Temp Arterial 32.5 MMHG; PH Patient Temp Arterial 7.449; Patient Temperature 37 CELCIUS; Potassium Heart/CVR 3.8 MMOL/L (3.5-5.1); Sodium Heart/CVR 138 MMOL/L (135-145)
[2017-10-28] MEDS ORDERED: DEXTROSE 5% KCL 20 MEQ 20 MEQ/1,000 ML BAG IV ONE (09:52)
[2017-10-28] MEDS ORDERED: ALBUMIN 25% 25 GM/100 ML VIAL IV ONE (09:52)
[2017-10-28] MEDS ORDERED: MAGNESIUM SULFATE 1 GM/2 ML VIAL ONE (09:52)
[2017-10-28] MEDS ORDERED: SODIUM BICARBONATE 50 MEQ/50 ML SYRINGE IV ONE (09:52)
[2017-10-28] MEDS ORDERED: PROTAMINE SULFATE 50 MG/5 ML VIAL IV ONE ×4 (09:53→11:40)
[2017-10-28] MEDS ORDERED: methylPREDNISolone SOD SUC 1,000 MG/8 ML VIAL ONE (09:53)
[2017-10-28] MEDS ORDERED: HEPARIN 10,000 UNIT/10 ML VIAL ONE (09:53)
[2017-10-28] MEDS ORDERED: FUROSEMIDE 20 MG/2 ML VIAL ONE (09:53)
[2017-10-28] MEDS ORDERED: MANNITOL 12.5 GM/50 ML VIAL IV ONE (09:53)
[2017-10-28] MEDS ORDERED: ALBUMIN 5% 12.5 GM in PREMIX 1 EACH IV PRN (10:30)
[2017-10-28] MEDS ORDERED: INSULIN REGULAR DRIP 100 ML IV SCH (10:30)
[2017-10-28] MEDS ORDERED: INSULIN REGULAR 100 UNIT/ML IV ONE ×2 (10:30→11:00)
[2017-10-28] MEDS ORDERED: MORPHINE 10 MG/1 ML VIAL IV PRN (10:30)
[2017-10-28] MEDS ORDERED: INSULIN REGULAR 100 UNIT/ML IV PRN (10:30)
[2017-10-28] MEDS ORDERED: ONDANSETRON 4 MG/2 ML VIAL IV PRN (10:30)
[2017-10-28] MEDS ORDERED: LACTATED RINGERS 250 ML IV PRN (10:30)
[2017-10-28] MEDS ORDERED: MAGNESIUM SULF RIDER 2 GM in PREMIX 1 EACH IV PRN (10:30)
[2017-10-28] MEDS ORDERED: CALCIUM CHLORIDE 1,000 MG/10 ML SYRINGE IV PRN (10:30)
[2017-10-28] MEDS ORDERED: DEXTROSE 50% 25 GM/50 ML VIAL IV PRN ×2 (10:30)
[2017-10-28] MEDS ORDERED: PHENYLEPHRINE DRIP 40 MG/250 ML PREMIX IV PRN (10:30)
[2017-10-28] MEDS ORDERED: MIDAZOLAM 2 MG/2 ML VIAL IV PRN (10:30)
[2017-10-28] MEDS ORDERED: VECURONIUM 10 MG VIAL IV PRN ×2 (10:30)
[2017-10-28] MEDS ORDERED: POTASSIUM CHLORIDE RIDER 10 MEQ in PREMIX 1 EACH IV PRN (10:30)
[2017-10-28] MEDS ORDERED: MIDAZOLAM 10 MG/2 ML VIAL IV PRN (10:30)
[2017-10-28] MEDS ORDERED: ACETAMINOPHEN 650 MG SUPP RECTAL PRN (10:30)
[2017-10-28] MEDS ORDERED: MAGNESIUM SULF RIDER 4 GM in PREMIX 1 EACH IV PRN (10:30)
[2017-10-28 10:54] LABS: ABG Base Excess -0.7 MMOL/L (-2.5-2.5); ABG HCO3 23.8 MMOL/L (20-26); ABG Oxygen Saturation 97.9 % (95-100); ABG PCO2 39.4 MM HG (35-48); ABG PH 7.393 (7.35-7.45); ABG TCO2 21.8 MMOL/L (23-27); Basophils % 0.3 % (0.0-0.8); Eosinophils # 0.2 10*3/uL (0.0-0.87); Eosinophils % 1.7 % (0.00-10.9); Glucose Heart Surgery 212 MG/DL (74-106); Hematocrit Heart Surgery 31.5 PERCENT (37-47); Hemoglobin 10.1 GM/DL (12.0-16.0); Hemoglobin Heart Surgery 10.2 G/DL (12.0-16.0); Immature Granulocytes % 0.7 %; Immature Granulocytes Absolute 0.08 #; Lymphocytes # 2.3 10*3/uL (1.4-4.0); Lymphocytes % 19.9 % (21.3-54.2); Mean Corpuscular HGB Conc 32.6 GM/DL (32-36); Mean Corpuscular Hemoglobin 30 PG (27-34); Mean Corpuscular Volume 92.5 FL (87-102); Mean Platelet Volume 11.1 FL (9.6-12.0); Monocytes # 0.7 10*3/uL (0.11-0.8); Monocytes % 5.8 % (1.7-12.7); Neutrophils # 8.4 10*3/uL (1.4-7.4); Neutrophils % 71.6 % (38.7-73.9); Platelet Count 216 T/CUMM (130-400); Potassium Heart/CVR 3.3 MMOL/L (3.5-5.1); Red Blood Count 3.35 MC/CUMM (3.8-5.5); White Blood Count 11.8 T/CUMM (4-12)
[2017-10-28 11:05] LABS: INR 1.3; PT Patient Result 13.2 SECS; Partial Thromboplastin Time 28.3 SECS (0-40)
[2017-10-28] MEDS: SODIUM CHLORIDE 0.45% 1,000 ML IV SCH ×2 (11:29)
[2017-10-28] MEDS: NITROPRUSSIDE 100 MG in DEXTROSE 5% 250 ML IV PRN (11:30)
[2017-10-28] MEDS: POTASSIUM CHLORIDE RIDER 20 MEQ in PREMIX 1 EACH IV PRN ×6 (12:05→18:23)
[2017-10-28 12:20] LABS: Albumin 3.3 G/DL (3.4-5.0); Bilirubin,Total 0.8 MG/DL (0.2-1.0); Calcium 9.2 MG/DL (8.5-10.1); Osmolality,Calculated 290.1 MOS/KG (273-304); Potassium 3.3 MMOL/L (3.5-5.1); Total Protein 5.8 G/DL (6.4-8.3)
[2017-10-28] MEDS: KETOROLAC 30 MG/1 ML VIAL IV SCH ×3 (12:20→21:57)
[2017-10-28] MEDS ORDERED: SEVOFLURANE 1 UNIT/15 MINUTE INH ONE (12:43)
[2017-10-28] MEDS ORDERED: CALCIUM CHLORIDE 1,000 MG/10 ML VIAL IV ONE (12:43)
[2017-10-28] MEDS ORDERED: ePHEDrine 50 MG/ML AMP ONE (12:44)
[2017-10-28] MEDS ORDERED: MIDAZOLAM 10 MG/2 ML VIAL ONE (12:44)
[2017-10-28] MEDS ORDERED: SUFentanil 250 MCG/5 ML AMP ONE (12:44)
[2017-10-28] MEDS ORDERED: SODIUM CHLORIDE 0.9% 250 ML IV ONE (12:45)
[2017-10-28] MEDS ORDERED: LACTATED RINGERS 1,000 ML IV ONE (12:45)
[2017-10-28] MEDS ORDERED: TRANEXAMIC ACID 1,000 MG/10 ML VIAL ONE (12:45)
[2017-10-28] MEDS ORDERED: VECURONIUM 10 MG VIAL IV ONE (12:45)
[2017-10-28] MEDS ORDERED: ETOMIDATE 40 MG/20 ML VIAL IV ONE (12:45)
[2017-10-28] MEDS ORDERED: DEXAMETHASONE 10 MG/1 ML VIAL ONE (12:45)
[2017-10-28] MEDS ORDERED: SODIUM CHLORIDE 0.9% 1,000 ML IV ONE (12:45)
[2017-10-28 12:50] LABS: ABG Base Excess 1.5 MMOL/L (-2.5-2.5); ABG HCO3 25.7 MMOL/L (20-26); ABG Oxygen Saturation 99.2 % (95-100); ABG TCO2 23.2 MMOL/L (23-27); Glucose Heart Surgery 154 MG/DL (74-106); Hematocrit Heart Surgery 34.1 PERCENT (37-47); Hemoglobin Heart Surgery 11.1 G/DL (12.0-16.0); Potassium Heart/CVR 3.5 MMOL/L (3.5-5.1)
[2017-10-28 15:04] LABS: ABG Base Excess 4.3 MMOL/L (-2.5-2.5); ABG HCO3 27.7 MMOL/L (20-26); ABG Oxygen Saturation 98.3 % (95-100); ABG PCO2 36.9 MM HG (35-48); ABG PH 7.493 (7.35-7.45); ABG PO2 122.8 MM HG (80-95); ABG TCO2 28.8 MMOL/L (23-27); Glucose Heart Surgery 135 MG/DL (74-106); Hemoglobin Heart Surgery 11.7 G/DL (12.0-16.0); Potassium Heart/CVR 3.7 MMOL/L (3.5-5.1)
[2017-10-28] MEDS ORDERED: AMIODARONE 150 MG/3 ML VIAL ONE (15:54)
[2017-10-28] MEDS ORDERED: HEPARIN/NACL 0.9% 2 UNITS/ML 500 ML IV ONE (16:03)
[2017-10-28] MEDS: SODIUM CHLORIDE 0.9% 1,000 ML IV SCH (16:20)
[2017-10-28] MEDS: MORPHINE 4 MG/1 ML VIAL IV PRN ×2 (16:36→19:17)
[2017-10-28 18:10] LABS: ABG Base Excess 2.5 MMOL/L (-2.5-2.5); ABG HCO3 26.7 MMOL/L (20-26); ABG Oxygen Saturation 97.7 % (95-100); ABG PCO2 43.8 MM HG (35-48); ABG PH 7.407 (7.35-7.45); ABG PO2 95.1 MM HG (80-95); ABG TCO2 24.9 MMOL/L (23-27); Glucose Heart Surgery 150 MG/DL (74-106); Hematocrit Heart Surgery 32.8 PERCENT (37-47); Hemoglobin Heart Surgery 10.6 G/DL (12.0-16.0); Potassium Heart/CVR 4.2 MMOL/L (3.5-5.1)
[2017-10-28] MEDS: INSULIN REGULAR 100 UNIT/ML SUBCUT SCH ×2 (18:18→21:24)
[2017-10-28] MEDS: CEFUROXIME INJ 1,500 MG in SYRINGE 1 EACH IV SCH (18:24)
[2017-10-28 19:51] LABS: ABG Base Excess 1.1 MMOL/L (-2.5-2.5); ABG HCO3 25.4 MMOL/L (20-26); ABG Oxygen Saturation 97.7 % (95-100); ABG PH 7.379 (7.35-7.45); Glucose Heart Surgery 140 MG/DL (74-106); Hematocrit Heart Surgery 32.3 PERCENT (37-47); Hemoglobin Heart Surgery 10.4 G/DL (12.0-16.0); Potassium Heart/CVR 4.4 MMOL/L (3.5-5.1)
[2017-10-28] MEDS ORDERED: FUROSEMIDE 40 MG/4 ML VIAL IV ONE (20:06)
[2017-10-28 20:21] LABS: CKMB % 5.7 %
[2017-10-29 01:30] LABS: ABG Base Excess 1.9 MMOL/L (-2.5-2.5); ABG HCO3 26.1 MMOL/L (20-26); ABG PCO2 44.6 MM HG (35-48); ABG PH 7.393 (7.35-7.45); ABG TCO2 24.6 MMOL/L (23-27); Glucose Heart Surgery 150 MG/DL (74-106); Hematocrit Heart Surgery 31.7 PERCENT (37-47); Hemoglobin Heart Surgery 10.3 G/DL (12.0-16.0); Potassium Heart/CVR 3.9 MMOL/L (3.5-5.1)
[2017-10-29] MEDS: POTASSIUM CHLORIDE RIDER 20 MEQ in PREMIX 1 EACH IV PRN ×2 (01:45→03:56)
[2017-10-29 03:06] LABS: ABG HCO3 26.2 MMOL/L (20-26); ABG Oxygen Saturation 98.5 % (95-100); ABG PH 7.406 (7.35-7.45); ABG TCO2 24.5 MMOL/L (23-27); Glucose Heart Surgery 149 MG/DL (74-106); Hematocrit Heart Surgery 31.2 PERCENT (37-47); Hemoglobin Heart Surgery 10.1 G/DL (12.0-16.0); Potassium Heart/CVR 4.3 MMOL/L (3.5-5.1)
[2017-10-29] MEDS: INSULIN REGULAR 100 UNIT/ML SUBCUT SCH ×4 (03:13→15:20)
[2017-10-29] MEDS: NITROPRUSSIDE 100 MG in DEXTROSE 5% 250 ML IV PRN (03:40)
[2017-10-29] MEDS: KETOROLAC 30 MG/1 ML VIAL IV SCH ×4 (04:00→21:20)
[2017-10-29 05:00] LABS: ABG Base Excess 1.3 MMOL/L (-2.5-2.5); ABG HCO3 25.6 MMOL/L (20-26); ABG Oxygen Saturation 98.3 % (95-100); ABG PCO2 42.8 MM HG (35-48); ABG PH 7.398 (7.35-7.45); Glucose Heart Surgery 152 MG/DL (74-106); Hematocrit Heart Surgery 31.2 PERCENT (37-47); Hemoglobin Heart Surgery 10.1 G/DL (12.0-16.0); Potassium Heart/CVR 4.7 MMOL/L (3.5-5.1)
[2017-10-29 05:04] LABS: Basophils % 0.1 % (0.0-0.8); Hematocrit 29.6 VOL% (35.7-47.0); Hemoglobin 9.9 GM/DL (12.0-16.0); Immature Granulocytes % 0.6 %; Immature Granulocytes Absolute 0.08 #; Lymphocytes # 0.9 10*3/uL (1.4-4.0); Lymphocytes % 6.5 % (21.3-54.2); Mean Corpuscular HGB Conc 33.4 GM/DL (32-36); Mean Corpuscular Hemoglobin 31 PG (27-34); Mean Corpuscular Volume 91.6 FL (87-102); Mean Platelet Volume 11.1 FL (9.6-12.0); Neutrophils # 11.8 10*3/uL (1.4-7.4); Neutrophils % 85.8 % (38.7-73.9); Platelet Count 198 T/CUMM (130-400); Red Blood Count 3.23 MC/CUMM (3.8-5.5); Red Cell Distribution Width 14.2 % (9.3-17.3); White Blood Count 13.8 T/CUMM (4-12)
[2017-10-29 05:30] LABS: Albumin 3.4 G/DL (3.4-5.0); Bilirubin,Direct 0.14 MG/DL (0.0-0.20); Bilirubin,Total 0.5 MG/DL (0.2-1.0); CKMB % 4.5 %; Calcium 8.1 MG/DL (8.5-10.1); Osmolality,Calculated 282.4 MOS/KG (273-304); Potassium 4.8 MMOL/L (3.5-5.1); Total Protein 5.7 G/DL (6.4-8.3)
[2017-10-29] MEDS: CARVEDILOL 25 MG TABLET PO SCH ×2 (05:56→09:13)
[2017-10-29 06:00] LABS: Hypochromasia Slight; Microcytosis Slight; Platelet Estimate Adequate
[2017-10-29] MEDS: CEFUROXIME INJ 1,500 MG in SYRINGE 1 EACH IV SCH (06:34)
[2017-10-29] MEDS ORDERED: LIDOCAINE 5% PATCH TRANSDERM PRN (08:06)
[2017-10-29] MEDS ORDERED: MAGNESIUM CHLORIDE 64 MG TABLET PO SCH (09:00)
[2017-10-29] MEDS ORDERED: MULTIVITAMIN (CENTRUM) TABLET PO SCH (09:00)
[2017-10-29] MEDS: THYROID 60 MG TABLET PO SCH ×2 (09:10→21:20)
[2017-10-29] MEDS: CHOLECALCIFEROL 1,000 UNIT TABLET PO SCH ×2 (09:11→21:20)
[2017-10-29] MEDS: ASCORBIC ACID 500 MG TABLET PO SCH ×2 (09:11→21:20)
[2017-10-29] MEDS: CALCIUM (CARBONATE) 600 MG TABLET PO SCH (09:12)
[2017-10-29] MEDS: DILTIAZEM CD 120 MG CAPSULE PO SCH ×2 (09:12→21:21)
[2017-10-29] MEDS: CHLORHEXIDINE 0.12% ORAL RINSE 60 ML BOTTLE SWISH/SPIT SCH ×3 (09:21→21:20)
[2017-10-29] MEDS: POLYETHYLENE GLYCOL POWDER 17 GM PACK PO SCH (09:47)
[2017-10-29] MEDS: COENZYME Q10 100 MG CAPSULE PO SCH (09:47)
[2017-10-29] MEDS: cycloSPORINE OPH EMUL 1 VIAL BOTH EYES SCH ×2 (09:47→21:57)
[2017-10-29] MEDS: SODIUM CHLORIDE 0.45% 1,000 ML IV SCH ×2 (10:44→13:22)
[2017-10-29] MEDS: hydrALAZINE 20 MG/1 ML VIAL IV PRN ×2 (11:35→17:13)
[2017-10-29] MEDS: CLORAZEPATE 3.75 MG TABLET PO PRN ×2 (11:36→21:21)
[2017-10-29 13:33] LABS: CKMB % 2.9 %
[2017-10-29] MEDS ORDERED: MAGNESIUM HYDROXIDE SUSP 30 ML UDCUP PO PRN (14:07)
[2017-10-29] MEDS ORDERED: ZALEPLON 5 MG CAPSULE PO PRN (14:07)
[2017-10-29] MEDS ORDERED: SODIUM CHLOR 0.45% KCL 20 MEQ 20 MEQ/1,000 ML BAG IV SCH (14:07)
[2017-10-29] MEDS ORDERED: MAGNESIUM SULF RIDER 2 GM in PREMIX 1 EACH IV PRN (14:07)
[2017-10-29] MEDS ORDERED: oxyCODONE/ACETAMINOPHEN 5-325 MG TABLET PO PRN (14:07)
[2017-10-29] MEDS ORDERED: DEXTROSE 50% 25 GM/50 ML VIAL IV PRN ×2 (14:07)
[2017-10-29] MEDS ORDERED: ONDANSETRON 4 MG/2 ML VIAL IV PRN (14:07)
[2017-10-29] MEDS ORDERED: POTASSIUM CHLORIDE 20 MEQ TABLET PO PRN (14:07)
[2017-10-29] MEDS ORDERED: ACETAMINOPHEN 325 MG TABLET PO PRN (14:07)
[2017-10-29] MEDS ORDERED: GLUCAGON 1 MG VIAL IM PRN ×2 (14:07)
[2017-10-29] MEDS ORDERED: MAGNESIUM SULF RIDER 4 GM in PREMIX 1 EACH IV PRN (14:07)
[2017-10-29] MEDS ORDERED: ALUMINUM/MAGNES/SIMETH MAX STR 30 ML UDCUP PO PRN (14:07)
[2017-10-29] MEDS: FERROUS SULFATE 325 MG TABLET PO SCH (14:56)
[2017-10-29] MEDS: DOCUSATE SODIUM 100 MG CAPSULE PO SCH (14:57)
[2017-10-29] MEDS: PANTOPRAZOLE 40 MG TABLET PO SCH (15:20)
[2017-10-29] MEDS ORDERED: CEFUROXIME INJ 1,500 MG in SYRINGE 1 EACH IV ONE (18:30)
[2017-10-29] MEDS ORDERED: CARVEDILOL 12.5 MG TABLET PO SCH (21:00)
[2017-10-29] MEDS: ATORVASTATIN 40 MG TABLET PO SCH (21:21)
[2017-10-29] MEDS: ASPIRIN EC 81 MG TABLET PO SCH (21:21)
[2017-10-29] MEDS: diphenhydrAMINE CAP 25 MG CAPSULE PO SCH (21:22)
[2017-10-30] MEDS: hydrALAZINE 20 MG/1 ML VIAL IV PRN (03:30)
[2017-10-30] MEDS: KETOROLAC 30 MG/1 ML VIAL IV SCH ×4 (03:35→21:08)
[2017-10-30] MEDS: CLORAZEPATE 3.75 MG TABLET PO PRN ×2 (04:10→21:09)
[2017-10-30 05:13] LABS: Hematocrit 28.7 VOL% (35.7-47.0); Hemoglobin 9.4 GM/DL (12.0-16.0); Immature Granulocytes % 0.6 %; Immature Granulocytes Absolute 0.08 #; Lymphocytes # 0.9 10*3/uL (1.4-4.0); Lymphocytes % 6.3 % (21.3-54.2); Mean Corpuscular HGB Conc 32.8 GM/DL (32-36); Mean Corpuscular Hemoglobin 31 PG (27-34); Mean Corpuscular Volume 94.4 FL (87-102); Mean Platelet Volume 11.6 FL (9.6-12.0); Monocytes # 1.1 10*3/uL (0.11-0.8); Monocytes % 7.8 % (1.7-12.7); NRBC # 0.02 10*3/uL; Neutrophils # 11.9 10*3/uL (1.4-7.4); Neutrophils % 85.3 % (38.7-73.9); Platelet Count 194 T/CUMM (130-400); Red Blood Count 3.04 MC/CUMM (3.8-5.5); Red Cell Distribution Width 14.6 % (9.3-17.3); White Blood Count 13.9 T/CUMM (4-12)
[2017-10-30 05:52] LABS: Bilirubin,Direct < 0.050 MG/DL (0.0-0.20); Bilirubin,Indirect 1.3 MG/DL (0.0-1.0)
[2017-10-30 05:54] LABS: Alanine Aminotransferase 25 U/L (13-56); Albumin 3.1 G/DL (3.4-5.0); Alkaline Phosphatase 67 U/L (45-117); Aspartate Amino Transferase 26 U/L (0-37); Blood Urea Nitrogen 21 MG/DL (7-18); Calcium 8.6 MG/DL (8.5-10.1); Glucose 158 MG/DL (74-106); Osmolality,Calculated 280.7 MOS/KG (273-304); Potassium 4.4 MMOL/L (3.5-5.1); Sodium 138 MMOL/L (136-145); Total Protein 6.2 G/DL (6.4-8.3)
[2017-10-30] MEDS ORDERED: FUROSEMIDE 40 MG/4 ML VIAL IV ONE (06:00)
[2017-10-30 06:19] LABS: Atypical Lymphocytes Few; Platelet Estimate Normal
[2017-10-30 06:20] LABS: Macrocytosis 1+
[2017-10-30] MEDS: CHOLECALCIFEROL 1,000 UNIT TABLET PO SCH ×2 (08:44→21:07)
[2017-10-30] MEDS: DILTIAZEM CD 120 MG CAPSULE PO SCH ×2 (08:44→21:07)
[2017-10-30] MEDS: ASCORBIC ACID 500 MG TABLET PO SCH ×2 (08:45→21:08)
[2017-10-30] MEDS: COENZYME Q10 100 MG CAPSULE PO SCH (08:45)
[2017-10-30] MEDS: CALCIUM (CARBONATE) 600 MG TABLET PO SCH (08:45)
[2017-10-30] MEDS: FERROUS SULFATE 325 MG TABLET PO SCH (08:45)
[2017-10-30] MEDS: PANTOPRAZOLE 40 MG TABLET PO SCH (08:45)
[2017-10-30] MEDS: DOCUSATE SODIUM 100 MG CAPSULE PO SCH (08:45)
[2017-10-30] MEDS: THYROID 60 MG TABLET PO SCH ×2 (08:45→21:08)
[2017-10-30] MEDS: CHLORHEXIDINE 0.12% ORAL RINSE 60 ML BOTTLE SWISH/SPIT SCH ×2 (08:46→21:07)
[2017-10-30] MEDS: CARVEDILOL 25 MG TABLET PO SCH ×3 (08:46→16:44)
[2017-10-30] MEDS: cycloSPORINE OPH EMUL 1 VIAL BOTH EYES SCH ×2 (08:47→21:22)
[2017-10-30] MEDS: POLYETHYLENE GLYCOL POWDER 17 GM PACK PO SCH (09:20)
[2017-10-30] MEDS: ATORVASTATIN 40 MG TABLET PO SCH (21:07)
[2017-10-30] MEDS: diphenhydrAMINE CAP 25 MG CAPSULE PO SCH (21:07)
[2017-10-30] MEDS: ASPIRIN EC 81 MG TABLET PO SCH (21:08)
[2017-10-31] MEDS: KETOROLAC 30 MG/1 ML VIAL IV SCH ×4 (03:02→21:16)
[2017-10-31 04:56] LABS: Basophils % 0.1 % (0.0-0.8); Eosinophils % 0.2 % (0.00-10.9); Hematocrit 27.3 VOL% (35.7-47.0); Hemoglobin 8.6 GM/DL (12.0-16.0); Immature Granulocytes % 0.5 %; Immature Granulocytes Absolute 0.06 #; Lymphocytes # 2.3 10*3/uL (1.4-4.0); Lymphocytes % 18.4 % (21.3-54.2); Mean Corpuscular HGB Conc 31.5 GM/DL (32-36); Mean Corpuscular Hemoglobin 30 PG (27-34); Mean Corpuscular Volume 94.1 FL (87-102); Mean Platelet Volume 11.7 FL (9.6-12.0); Monocytes # 1.7 10*3/uL (0.11-0.8); Monocytes % 13.3 % (1.7-12.7); NRBC # 0.02 10*3/uL; Neutrophils # 8.4 10*3/uL (1.4-7.4); Neutrophils % 67.5 % (38.7-73.9); Platelet Count 185 T/CUMM (130-400); Red Cell Distribution Width 14.3 % (9.3-17.3); White Blood Count 12.4 T/CUMM (4-12)
[2017-10-31 05:23] LABS: Bilirubin,Direct < 0.100 MG/DL (0.0-0.20); Bilirubin,Indirect 0.3 MG/DL (0.0-1.0); Bilirubin,Total < 0.39 MG/DL (0.2-1.0)
[2017-10-31 05:27] LABS: Alanine Aminotransferase 23 U/L (13-56); Albumin 2.8 G/DL (3.4-5.0); Alkaline Phosphatase 56 U/L (45-117); Aspartate Amino Transferase 21 U/L (0-37); Blood Urea Nitrogen 33 MG/DL (7-18); Calcium 8.6 MG/DL (8.5-10.1); Glucose 99 MG/DL (74-106); Osmolality,Calculated 281.7 MOS/KG (273-304); Potassium 4.6 MMOL/L (3.5-5.1); Sodium 138 MMOL/L (136-145); Total Protein 5.7 G/DL (6.4-8.3)
[2017-10-31] MEDS: CALCIUM (CARBONATE) 600 MG TABLET PO SCH (09:20)
[2017-10-31] MEDS: THYROID 60 MG TABLET PO SCH ×2 (09:20→22:00)
[2017-10-31] MEDS: COENZYME Q10 100 MG CAPSULE PO SCH (09:21)
[2017-10-31] MEDS: CHOLECALCIFEROL 1,000 UNIT TABLET PO SCH ×2 (09:21→21:16)
[2017-10-31] MEDS: ASCORBIC ACID 500 MG TABLET PO SCH ×2 (09:21→21:16)
[2017-10-31] MEDS: FERROUS SULFATE 325 MG TABLET PO SCH (09:22)
[2017-10-31] MEDS: PANTOPRAZOLE 40 MG TABLET PO SCH (09:22)
[2017-10-31] MEDS: DOCUSATE SODIUM 100 MG CAPSULE PO SCH (09:22)
[2017-10-31] MEDS: POLYETHYLENE GLYCOL POWDER 17 GM PACK PO SCH (09:22)
[2017-10-31] MEDS: CHLORHEXIDINE 0.12% ORAL RINSE 60 ML BOTTLE SWISH/SPIT SCH ×2 (09:22→21:17)
[2017-10-31] MEDS: cycloSPORINE OPH EMUL 1 VIAL BOTH EYES SCH ×2 (09:22→22:02)
[2017-10-31] MEDS: DILTIAZEM CD 120 MG CAPSULE PO SCH ×2 (09:37→21:16)
[2017-10-31] MEDS: CARVEDILOL 25 MG TABLET PO SCH (09:44)
[2017-10-31] MEDS: CARVEDILOL 12.5 MG TABLET PO SCH (16:07)
[2017-10-31] MEDS: diphenhydrAMINE CAP 25 MG CAPSULE PO SCH (21:16)
[2017-10-31] MEDS: ASPIRIN EC 81 MG TABLET PO SCH (21:16)
[2017-10-31] MEDS: CLORAZEPATE 3.75 MG TABLET PO PRN (21:16)
[2017-10-31] MEDS: ATORVASTATIN 40 MG TABLET PO SCH (21:16)
[2017-11-01] MEDS: KETOROLAC 30 MG/1 ML VIAL IV SCH ×2 (03:36→09:46)
[2017-11-01 07:41] VITALS: BP 132/72
[2017-11-01] MEDS: FERROUS SULFATE 325 MG TABLET PO SCH (09:45)
[2017-11-01] MEDS: DOCUSATE SODIUM 100 MG CAPSULE PO SCH (09:45)
[2017-11-01] MEDS: DILTIAZEM CD 120 MG CAPSULE PO SCH (09:45)
[2017-11-01] MEDS: CHOLECALCIFEROL 1,000 UNIT TABLET PO SCH (09:45)
[2017-11-01] MEDS: CALCIUM (CARBONATE) 600 MG TABLET PO SCH (09:45)
[2017-11-01] MEDS: CARVEDILOL 12.5 MG TABLET PO SCH (09:45)
[2017-11-01] MEDS: POLYETHYLENE GLYCOL POWDER 17 GM PACK PO SCH (09:45)
[2017-11-01] MEDS: PANTOPRAZOLE 40 MG TABLET PO SCH (09:46)
[2017-11-01] MEDS: THYROID 60 MG TABLET PO SCH (09:46)
[2017-11-01] MEDS: COENZYME Q10 100 MG CAPSULE PO SCH (09:46)
[2017-11-01] MEDS: cycloSPORINE OPH EMUL 1 VIAL BOTH EYES SCH (09:46)
[2017-11-01] MEDS: CHLORHEXIDINE 0.12% ORAL RINSE 60 ML BOTTLE SWISH/SPIT SCH (09:46)
[2017-11-01] MEDS: ASCORBIC ACID 500 MG TABLET PO SCH (09:46)
== END 2017-11-01 11:01 | disposition home health service (06) | DRG 234 ==
LOC: N.CL 06:00 → N.TELES 09:49 → N.CVR 10-28 09:46 → N.ICU 10-29 12:36 → N.TELES 10-30 10:22
PROVIDERS: ADMIT Internal Medicine Cardiovascular Disease; ATTEND Internal Medicine Cardiovascular Disease
PROC: CLCCHCL (ICD-10-PCS; 2017-10-24 09:15)

== ENCOUNTER 2022-01-18 07:17 | Observation (INO) ==
[2022-01-18] MEDS ORDERED: NITROGLYCERIN 2% OINT 1 INCH/GM PACK TOP STA (07:43)
[2022-01-18] MEDS ORDERED: ALUM/MAG/SIMETH/LIDO VISC 1:1 30 ML BOTTLE PO STA (07:43)
[2022-01-18] MEDS ORDERED: ASPIRIN 325 MG TABLET PO STA (07:43)
[2022-01-18] MEDS ORDERED: ONDANSETRON 4 MG/2 ML VIAL IV STA (07:43)
[2022-01-18] MEDS ORDERED: fentaNYL 100 MCG/2 ML VIAL IV STA (07:44)
[2022-01-18] MEDS ORDERED: carvediloL 3.125 MG TABLET PO STA (07:46)
[2022-01-18] MEDS ORDERED: DILTIAZEM CD 120 MG CAPSULE PO STA (07:47)
[2022-01-18 08:00] LABS: Basophils % 0.5 % (0.0-0.8); Eosinophils # 0.3 10*3/uL (0.0-0.87); Eosinophils % 4.2 % (0.00-10.9); Hematocrit 44.5 VOL% (35.7-47.0); Hemoglobin 14.1 GM/DL (12.0-16.0); Immature Granulocytes % 0.3 %; Immature Granulocytes Absolute 0.02 #; Lymphocytes # 2.4 10*3/uL (1.4-4.0); Lymphocytes % 32.1 % (21.3-54.2); Mean Corpuscular HGB Conc 31.7 GM/DL (32-36); Mean Corpuscular Volume 96.1 FL (87-102); Mean Platelet Volume 10.9 FL (9.6-12.0); Monocytes # 0.8 10*3/uL (0.11-0.8); Monocytes % 10.3 % (1.7-12.7); Neutrophils % 52.6 % (38.7-73.9); Platelet Count 256 T/CUMM (130-400); Red Blood Count 4.63 MC/CUMM (3.8-5.5); Red Cell Distribution Width 14.5 % (9.3-17.3); White Blood Count 7.6 T/CUMM (4-12)
[2022-01-18 08:11] LABS: INR 0.9; PT Patient Result 10.4 SECS (10.1-12.1); Partial Thromboplastin Time 23.9 SECS (23.7-32.9)
[2022-01-18 08:22] LABS: Albumin 3.8 G/DL (3.4-5.0); Bilirubin,Total 0.4 MG/DL (0.20-1.00); Calcium 10.3 MG/DL (8.5-10.1); Osmolality,Calculated 278.4 MOS/KG (273-304); Potassium 4.3 MMOL/L (3.5-5.1); Total Protein 7.5 G/DL (6.4-8.2)
[2022-01-18 08:34] LABS: Free T4 (Free Thyroxine) 0.86 NG/DL (0.76-1.46); Thyroid Stimulating Hormone 0.611 uIU/ml (0.358-3.74)
[2022-01-18] MEDS ORDERED: ONDANSETRON 4 MG/2 ML VIAL IV PRN (14:07)
[2022-01-18] MEDS ORDERED: ALBUTEROL/IPRATROPIUM 3 ML NEB RESP TX PRN (14:07)
[2022-01-18] MEDS ORDERED: PANTOPRAZOLE 40 MG TABLET PO SCH (14:30)
[2022-01-18] MEDS ORDERED: PNEUMOCOCCAL VACCINE (13 VALENT) 0.5 ML SYRINGE IM ONE (16:05)
[2022-01-18] MEDS ORDERED: hydrALAZINE 20 MG/1 ML VIAL IV PRN (16:13)
[2022-01-18] MEDS: ENOXAPARIN 40 MG/0.4 ML SYRINGE SUBCUT SCH ×2 (20:54→20:59)
[2022-01-18] MEDS: PANTOPRAZOLE 40 MG TABLET PO SCH (20:54)
[2022-01-18 22:56] LABS: Mucus,Urine Occasional /LPF (Occasional); RBC,Urine 1 /HPF (0-4); Squamous Epithelial Cell,Urine Occasional /HPF (0-10)
[2022-01-18 22:58] LABS: Bilirubin,Urine Negative (Negative); Blood, Urine Negative (Negative); Glucose,Urine (UA) Negative (Negative); Ketones,Urine Negative (Negative); Nitrite,Urine Negative (Negative); Protein,Urine Negative (Negative); Urine Appearance Clear (Clear); Urine Color Yellow (Yellow); Urine Urobilinogen 0.2 eU/dL (<2.0)
[2022-01-19 05:04] LABS: Basophils % 0.5 % (0.0-0.8); Eosinophils # 0.3 10*3/uL (0.0-0.87); Eosinophils % 3.7 % (0.00-10.9); Hematocrit 39.2 VOL% (35.7-47.0); Hemoglobin 12.4 GM/DL (12.0-16.0); Immature Granulocytes % 0.1 %; Immature Granulocytes Absolute 0.01 #; Lymphocytes # 2.9 10*3/uL (1.4-4.0); Lymphocytes % 37.8 % (21.3-54.2); Mean Corpuscular HGB Conc 31.6 GM/DL (32-36); Mean Corpuscular Volume 95.8 FL (87-102); Mean Platelet Volume 10.8 FL (9.6-12.0); Monocytes # 0.8 10*3/uL (0.11-0.8); Monocytes % 10.7 % (1.7-12.7); Neutrophils % 47.2 % (38.7-73.9); Platelet Count 222 T/CUMM (130-400); Red Blood Count 4.09 MC/CUMM (3.8-5.5); Red Cell Distribution Width 14.3 % (9.3-17.3); White Blood Count 7.8 T/CUMM (4-12)
[2022-01-19 05:25] LABS: Albumin 2.9 G/DL (3.4-5.0); Bilirubin,Total 0.5 MG/DL (0.20-1.00); Calcium 8.8 MG/DL (8.5-10.1); Osmolality,Calculated 282.1 MOS/KG (273-304); Potassium 3.5 MMOL/L (3.5-5.1); Risk Ratio 2.52; Total Protein 6.3 G/DL (6.4-8.2); VLDL Cholesterol 15.6 MG/DL
[2022-01-19 08:18] VITALS: BP 175/68
[2022-01-19] MEDS: PANTOPRAZOLE 40 MG TABLET PO SCH (08:53)
[2022-01-19] MEDS ORDERED: diphenhydrAMINE CAP 25 MG CAPSULE PO PRN (09:08)
[2022-01-19] MEDS ORDERED: NITROGLYCERIN SL 0.4 MG TABLET SL PRN (09:08)
[2022-01-19] MEDS ORDERED: [UNRECOGNIZED DRUG - OTHER] PO SCH (09:15)
[2022-01-19] MEDS ORDERED: MULTIVITAMIN (CENTRUM) TABLET PO SCH (09:15)
[2022-01-19] MEDS ORDERED: MAGNESIUM CHLORIDE 64 MG TABLET PO SCH (09:15)
[2022-01-19] MEDS ORDERED: ASCORBIC ACID 500 MG TABLET PO SCH (09:15)
[2022-01-19] MEDS ORDERED: DHEA PO SCH (09:15)
[2022-01-19] MEDS ORDERED: cycloSPORINE OPH EMUL 1 VIAL BOTH EYES SCH (09:30)
[2022-01-19] MEDS ORDERED: CLOPIDOGREL 75 MG TABLET PO SCH (09:30)
[2022-01-19] MEDS ORDERED: POLYETHYLENE GLYCOL POWDER 17 GM PACK PO SCH (09:30)
[2022-01-19] MEDS ORDERED: carvediloL 25 MG TABLET PO SCH (09:30)
[2022-01-19] MEDS ORDERED: CHOLECALCIFEROL 1,000 UNIT TABLET PO SCH (09:30)
[2022-01-19] MEDS ORDERED: DILTIAZEM CD 120 MG CAPSULE PO SCH (09:30)
[2022-01-19] MEDS ORDERED: ATORVASTATIN 40 MG TABLET PO SCH (21:00)
[2022-01-19] MEDS ORDERED: ASPIRIN EC 81 MG TABLET PO SCH (21:00)
== END 2022-01-19 11:05 | disposition home or self-care (01) ==
LOC: N.ED 07:17 → N.EDINP 07:17 → SUATTDRO 14:07 → N.2W 15:35
PROVIDERS: ADMIT Internal Medicine; ATTEND Family Medicine